=== PATIENT | female | born 1950 | race Caucasian/White ===

== ENCOUNTER → 2023-07-16 | Outpatient (CLI) | payer MEDICARE ==
[~2023-07-16] MED LIST: CENT1TAB PO; ECOT81TA5 PO; GASTROGRAFIN SOLUTION 30ML As Ordered ONE; ISOVUE-370 76% 100ML VIAL As Ordered ONE; VITA200031 PO; VITA500T40 PO
== END ==
LOC: M RAD 12:54
PROVIDERS: ATTEND Internal Medicine Hematology & Oncology
DX: C90.00 Multiple myeloma not having achieved remission (principal)
CPT/HCPCS: 71260; 74177; Q9963; Q9967

== ENCOUNTER 2023-07-31 09:44 | Day surgery (SDC) | payer MEDICARE ==
[~2023-07-31] VITALS: Ht 165.1 cm; Wt 61.1 kg
[~2023-07-31 09:44] MED LIST changes: +BACT800T5 PO; +BACTDSTA PO; -GASTROGRAFIN SOLUTION 30ML As Ordered ONE; -ISOVUE-370 76% 100ML VIAL As Ordered ONE; +LEVO1TAB38 PO; +ONDA-196 PO; +ONDA8TAB8 PO; +VALA500T5 PO; +XELO1TAB PO
[2023-07-31] MEDS ORDERED: ONDANSETRON 4MG 2ML VIAL As Ordered ONE (11:43)
[2023-07-31] MEDS ORDERED: LIDOCAINE 2% 100MG/5ML SDV (FOR ANES.) As Ordered ONE (11:43)
[2023-07-31] MEDS ORDERED: propofoL 200 MG/20 ML VIAL As Ordered ONE (11:43)
[2023-07-31] MEDS ORDERED: MIDAZOLAM INJ 2MG/2ML VIAL As Ordered ONE (11:43)
[2023-07-31] MEDS ORDERED: fentaNYL 100 MCG/2 ML INJECTION As Ordered ONE (11:43)
[2023-07-31] MEDS ORDERED: KETOROLAC 60MG 2ML VIAL As Ordered ONE (11:47)
[2023-07-31] MEDS ORDERED: dexmedeTOMIDine (4MCG/ML)200MCG/50ML BTL (PRECEDEX) As Ordered ONE (12:29)
[2023-07-31] MEDS: ceFAZolin SOD 2 GM in IV 1 EA IV ONE (12:50)
[2023-07-31] MEDS ORDERED: PHENYLephrine 500MCG 5ML (100MCG/ML) SYRINGE As Ordered ONE (13:09)
[2023-07-31] MEDS: LIDOCAINE 1% SDV 30ML VIAL As Ordered ONE (13:28)
[2023-07-31] MEDS: HEPARIN SOD (PORCINE) 5000UNITS/ML 1ML VIAL/SYRINGE As Ordered ONE (13:30)
[2023-07-31] MEDS ORDERED: METOCLOPRAMIDE INJ 10MG/2ML VIAL IV PRN (13:30)
[2023-07-31] MEDS ORDERED: fentaNYL 100 MCG/2 ML INJECTION IV PRN (13:30)
[2023-07-31] MEDS ORDERED: LR 1,000 ML IV SCH (13:30)
[2023-07-31] MEDS ORDERED: ONDANSETRON 4MG 2ML VIAL IV PRN (13:30)
[2023-07-31 14:25] VITALS: BP 129/63; TEMP 97.1; O2SAT 97
== END 2023-07-31 14:39 | disposition home or self-care (01) ==
LOC: M SDC 09:44
PROVIDERS: ATTEND Surgery
DX: C85.90 Non-Hodgkin lymphoma, unspecified, unspecified site (principal); Z88.8 Allergy status to other drugs, medicaments and biological substances; Z88.5 Allergy status to narcotic agent; F17.210 Nicotine dependence, cigarettes, uncomplicated; Z79.899 Other long term (current) drug therapy
CPT/HCPCS: 36561; 71045; 76000; C1788; J0665; J0690; J1100; J1885; J2250; J2371; J2405; J3010

== ENCOUNTER → 2024-03-26 | Outpatient (CLI) | payer MEDICARE ==
[~2024-03-26] MED LIST changes: +BENA25CA4 PO; +BENZ200C70 PO; +CLAR10CA3 PO; +DOXY-440 PO; +HALO0.056 TOP; +LIDO30CR18 TOP; +ONDA-284 PO; +ONDA-84; -ONDA8TAB8 PO
== END ==
LOC: M LAB 12:20
PROVIDERS: ATTEND Internal Medicine Hematology & Oncology
DX: D89.0 Polyclonal hypergammaglobulinemia (principal)

== ENCOUNTER 2024-06-10 09:00 | Outpatient (CLI) | payer MEDICARE ==
[~2024-06-10] VITALS: Ht 162.6 cm; Wt 59.0 kg
[2024-06-10 08:50] VITALS: BP 123/67; O2SAT 93
[~2024-06-10 09:00] MED LIST changes: +ACETAMINOPHEN 650MG PO PRIOR TO INFUSION PO ONE; +ALBUTEROL SULFATE 2.5MG/0.5ML INH NEB SOLN INH PRN; +EPINEPHrine INJ 1 MG/ML 1ML AMP IM PRN; +IPRA0.00; +NS (Normal Saline) 0.9% 1,000 ML IV SCH; +diphenhydrAMINE 50MG/ML VIAL IV PRN; +methylPREDNISolone 125MG 2ML VIAL IV PRN
[2024-06-10] MEDS: methylPREDNISolone 125MG 2ML VIAL IV ONE (09:11)
[2024-06-10] MEDS: diphenhydrAMINE 25MG PO PRIOR TO INFUSION PO ONE (09:12)
[2024-06-10] MEDS: IMMUNE GLOBULIN 10% 5GM 5 GM in IV 1 EA IV ONE (09:50)
[2024-06-10] MEDS: IMMUNE GLOBULIN 10% 20GM 200ML 20 GM in IV 1 EA IV ONE (09:51)
[2024-06-10 10:00] VITALS: BP 129/71; O2SAT 96
[2024-06-10 10:30] VITALS: BP 115/57; O2SAT 96
[2024-06-10 11:00] VITALS: BP 119/66; O2SAT 96
[2024-06-10 11:30] VITALS: BP 122/70; O2SAT 96
[2024-06-10 12:40] VITALS: BP 129/63; O2SAT 94
== END 2024-06-10 12:45 | disposition home or self-care (01) ==
LOC: M INFU 09:00
PROVIDERS: ATTEND Internal Medicine Medical Oncology
DX: D80.1 Nonfamilial hypogammaglobulinemia (principal); Z88.5 Allergy status to narcotic agent; Z88.8 Allergy status to other drugs, medicaments and biological substances
CPT/HCPCS: 36415; 80053; 82784; 83521; 83615; 84155; 84165; 85025; 86334; 96365; 96366; 96375; J1569; J1642; J2919

== ENCOUNTER 2024-07-08 08:30 | Outpatient (CLI) | payer MEDICARE ==
[~2024-07-08] VITALS: Ht 160 cm; Wt 61.0 kg
[2024-07-08 08:00] VITALS: BP 133/70; O2SAT 97
[~2024-07-08 08:30] MED LIST changes: -ACETAMINOPHEN 650MG PO PRIOR TO INFUSION PO ONE
[2024-07-08] MEDS: diphenhydrAMINE 25MG PO PRIOR TO INFUSION PO ONE (08:59)
[2024-07-08] MEDS: methylPREDNISolone 125MG 2ML VIAL IV ONE (08:59)
[2024-07-08] MEDS ORDERED: SODIUM CHLORIDE 0.9% INJ 10 ML SYR IV SCH (09:00)
[2024-07-08] MEDS: IMMUNE GLOBULIN 10% 20GM 200ML 20 GM in IV 1 EA IV ONE (09:17)
[2024-07-08] MEDS: IMMUNE GLOBULIN 10% 5GM 5 GM in IV 1 EA IV ONE (09:18)
[2024-07-08 09:20] VITALS: BP 140/68; O2SAT 97
[2024-07-08 10:00] VITALS: BP 129/74; O2SAT 98
[2024-07-08 11:00] VITALS: BP 128/68; O2SAT 97
[2024-07-08 11:40] VITALS: BP 131/76; O2SAT 96
== END 2024-07-08 12:00 ==
LOC: M INFU 08:30
PROVIDERS: ATTEND Internal Medicine Medical Oncology
DX: D80.1 Nonfamilial hypogammaglobulinemia (principal); Z88.5 Allergy status to narcotic agent; Z88.6 Allergy status to analgesic agent
CPT/HCPCS: 36415; 80053; 82784; 83521; 83615; 84155; 84165; 85025; 96365; 96366; 96375; J1569; J2919

== ENCOUNTER 2024-08-05 08:20 | Outpatient (CLI) | payer MEDICARE ==
[~2024-08-05] VITALS: Ht 160 cm; Wt 60.5 kg
[2024-08-05 08:20] VITALS: BP 132/83; O2SAT 99
[~2024-08-05 08:20] MED LIST changes: -ALBUTEROL SULFATE 2.5MG/0.5ML INH NEB SOLN INH PRN; -EPINEPHrine INJ 1 MG/ML 1ML AMP IM PRN; -NS (Normal Saline) 0.9% 1,000 ML IV SCH; -diphenhydrAMINE 50MG/ML VIAL IV PRN; -methylPREDNISolone 125MG 2ML VIAL IV PRN
[2024-08-05] MEDS: diphenhydrAMINE 25MG PO PRIOR TO INFUSION PO ONE (08:45)
[2024-08-05] MEDS: methylPREDNISolone 125MG 2ML VIAL IV ONE (08:46)
[2024-08-05] MEDS ORDERED: diphenhydrAMINE 50MG/ML VIAL IV PRN (09:00)
[2024-08-05] MEDS ORDERED: NS (Normal Saline) 0.9% 1,000 ML IV SCH (09:00)
[2024-08-05] MEDS ORDERED: EPINEPHrine INJ 1 MG/ML 1ML AMP IM PRN (09:00)
[2024-08-05] MEDS ORDERED: methylPREDNISolone 125MG 2ML VIAL IV PRN (09:00)
[2024-08-05] MEDS ORDERED: ALBUTEROL SULFATE 2.5MG/0.5ML INH CONCENTRATE NEB SOLN INH PRN (09:00)
[2024-08-05] MEDS: IMMUNE GLOBULIN 10% 20GM 200ML 20 GM in IV 1 EA IV ONE (09:14)
[2024-08-05] MEDS: IMMUNE GLOBULIN 10% 5GM 5 GM in IV 1 EA IV ONE (09:14)
[2024-08-05 10:00] VITALS: BP 137/89; O2SAT 96
[2024-08-05 10:30] VITALS: BP 136/66; O2SAT 95
[2024-08-05 11:00] VITALS: BP 135/74; O2SAT 95
[2024-08-05 12:25] VITALS: BP 116/64; O2SAT 96
[2024-08-05] MEDS: SODIUM CHLORIDE 0.9% INJ 10 ML SYR IV PRN (12:31)
== END 2024-08-05 12:35 ==
LOC: M INFU 08:20
PROVIDERS: ATTEND Internal Medicine Medical Oncology
DX: D80.1 Nonfamilial hypogammaglobulinemia (principal); Z88.5 Allergy status to narcotic agent; Z88.6 Allergy status to analgesic agent
CPT/HCPCS: 36415; 80053; 82784; 83521; 85025; 86334; 96365; 96366; 96375; J1569; J1642; J2919

== ENCOUNTER → 2024-08-14 | Outpatient (CLI) | payer MEDICARE ==
[~2024-08-14] MED LIST changes: +CARDIAC STRESS TEST RESCUE BOX 1 KIT EA XX ONE; +LIDOCAINE 1% MDV 20ML VIAL As Ordered ONE
[2024-08-14 11:37] VITALS: TEMP 97.2
[2024-08-14] MEDS: MIDAZOLAM INJ 2MG/2ML VIAL IV PRN (12:39)
[2024-08-14] MEDS: NS (Normal Saline) 0.9% 1,000 ML IV SCH (12:40)
[2024-08-14] MEDS: fentaNYL 100 MCG/2 ML INJECTION IV PRN (12:40)
[2024-08-14] MEDS: ceFAZolin SODIUM 2 GM in DEXTROSE 5% (D5W) ADV/MINI-BAG 50 ML IV ONE (12:40)
[2024-08-14] MEDS: ISOVUE-300 61% 100ML VIAL IV STA (12:52)
[2024-08-14] MEDS: LIDOCAINE 1% MDV 20ML VIAL SC ONE (12:53)
[2024-08-14 13:30] VITALS: BP 145/67; O2SAT 96
== END ==
LOC: M IRPRO 11:23
PROVIDERS: ATTEND Internal Medicine Medical Oncology
DX: C88.00 Waldenstrom macroglobulinemia not having achieved remission (principal)
CPT/HCPCS: 36590; 99152; J0690; J1642; J2250; J3010; Q9967

== ENCOUNTER 2024-09-30 08:18 | Outpatient (CLI) | payer MEDICARE ==
[~2024-09-30] VITALS: Ht 160 cm; Wt 60.4 kg
[~2024-09-30 08:18] MED LIST changes: +ALBUTEROL SULFATE 2.5MG/0.5ML INH CONCENTRATE NEB SOLN INH PRN; -CARDIAC STRESS TEST RESCUE BOX 1 KIT EA XX ONE; +EPINEPHrine INJ 1 MG/ML 1ML AMP IM PRN; -LIDOCAINE 1% MDV 20ML VIAL As Ordered ONE; +NS (Normal Saline) 0.9% 1,000 ML IV SCH; +diphenhydrAMINE 50MG/ML VIAL IV PRN; +methylPREDNISolone 125MG 2ML VIAL IV PRN
[2024-09-30 09:25] VITALS: BP 123/67; O2SAT 98
[2024-09-30] MEDS: methylPREDNISolone 125MG 2ML VIAL IV ONE (09:53)
[2024-09-30] MEDS: diphenhydrAMINE 25MG PO PRIOR TO INFUSION PO ONE (09:55)
[2024-09-30] MEDS: IMMUNE GLOBULIN 10% 20GM 200ML 20 GM in IV 1 EA IV ONE (10:03)
[2024-09-30] MEDS: IMMUNE GLOBULIN 10% 5GM 5 GM in IV 1 EA IV ONE (10:05)
[2024-09-30 10:45] VITALS: BP 128/65; O2SAT 97
[2024-09-30 11:15] VITALS: BP 129/74; O2SAT 98
[2024-09-30 11:45] VITALS: BP 135/72; O2SAT 97
[2024-09-30 12:20] VITALS: BP 137/64; O2SAT 96
== END 2024-09-30 12:25 | disposition home or self-care (01) ==
LOC: M INFU 08:18
PROVIDERS: ATTEND Internal Medicine Medical Oncology
DX: D80.1 Nonfamilial hypogammaglobulinemia (principal); C88.00 Waldenstrom macroglobulinemia not having achieved remission; Z88.5 Allergy status to narcotic agent; Z88.6 Allergy status to analgesic agent
CPT/HCPCS: 36415; 80053; 82784; 83521; 85025; 96365; 96366; 96375; J1569; J2919

== ENCOUNTER 2024-11-25 08:52 | Outpatient (CLI) | payer MEDICARE ==
[~2024-11-25] VITALS: Ht 160 cm; Wt 60.2 kg
[~2024-11-25 08:52] MED LIST changes: +ALBUTEROL SULFATE 2.5 MG/0.5 ML INH CONCENTRATE NEB SOLN INH PRN; -ALBUTEROL SULFATE 2.5MG/0.5ML INH CONCENTRATE NEB SOLN INH PRN; -NS (Normal Saline) 0.9% 1,000 ML IV SCH; +diphenhydrAMINE 50 MG/ML VIAL IV PRN; -diphenhydrAMINE 50MG/ML VIAL IV PRN; -methylPREDNISolone 125MG 2ML VIAL IV PRN
[2024-11-25 09:15] VITALS: BP 130/69; O2SAT 98
[2024-11-25] MEDS ORDERED: NS (Normal Saline) 0.9% 1,000 ML IV SCH (09:30)
[2024-11-25] MEDS: IMMUNE GLOBULIN 10% 20GM 200ML 20 GM in IV 1 EA IV ONE (10:08)
[2024-11-25] MEDS: IMMUNE GLOBULIN 10% 5GM 5 GM in IV 1 EA IV ONE (10:09)
[2024-11-25 10:30] VITALS: BP 123/86; O2SAT 96
[2024-11-25 11:00] VITALS: BP 116/66; O2SAT 95
[2024-11-25 11:30] VITALS: BP 137/74; O2SAT 96
[2024-11-25 12:15] VITALS: BP 111/59; O2SAT 98
== END 2024-11-25 12:25 ==
LOC: M INFU 08:52
PROVIDERS: ATTEND Internal Medicine Medical Oncology
DX: D80.1 Nonfamilial hypogammaglobulinemia (principal); Z88.5 Allergy status to narcotic agent; Z88.6 Allergy status to analgesic agent
CPT/HCPCS: 96365; 96366; 96375; J1569; J2919